=== PATIENT | male | born 1980 | race African-American/Black ===

== ENCOUNTER 2020-05-27 19:29 | Emergency (ER) | payer SELFPAY ==
[~2020-05-27] VITALS: Ht 193 cm; Wt 79.4 kg
[2020-05-27 20:00] VITALS: BP 143/101
== END 2020-05-27 21:52 | disposition home or self-care (01) ==
LOC: ER 19:37
DX: R06.02 Shortness of breath (principal); R91.8 Other nonspecific abnormal finding of lung field; Z20.828 Contact with and (suspected) exposure to other viral communicable diseases
CPT/HCPCS: 36415; 71045; 87426; 99284; C9803; U0003

== ENCOUNTER 2021-03-30 12:04 | Emergency (ER) | payer SELFPAY ==
[~2021-03-30] VITALS: Ht 193 cm; Wt 79.4 kg
[2021-03-30 13:26] LABS: Basophils # (auto) 0 10 ^3/uL (0-0.2); Basophils % (auto) 0.7 % (0.0-2.0); Eosinophils # (auto) 0 10 ^3/uL (0-0.8); Eosinophils % (auto) 0.7 % (0.0-7.0); Hematocrit 40.6 % (41.0-53.0); Hemoglobin 14.2 g/dL (13.5-17.5); Lymphocytes # (auto) 2.2 10 ^3/uL (0.4-5.4); Lymphocytes % (auto) 32.8 % (10.0-50.0); Mean Corpuscular Hemoglobin 30.3 pg (28.0-32.0); Mean Corpuscular Hgb Conc. 34.9 g/dL (32.0-36.0); Mean Corpuscular Volume 86.9 fL (80.0-100.0); Monocytes # (auto) 0.9 10 ^3/uL (0-1.3); Monocytes % (auto) 13.4 % (0.0-12.0); Neutrophils # (auto) 3.5 10 ^3/uL (1.6-8.6); Neutrophils % (auto) 52.4 % (37.0-80.0); Nucleated Red Blood Cells % 0.1 %; Red Blood Cells 4.67 10^6/uL (4.5-5.90); Red Cell Distribution Width 14.9 % (11.8-14.3); White Blood Cell 6.7 10^3/uL (4.4-10.8)
[2021-03-30 13:33] LABS: Albumin 4.6 g/dL (3.4-5.0); Calcium 9.5 mg/dL (8.5-10.1); Magnesium 2.5 mg/dL (1.6-2.6); Potassium 3.6 mmol/L (3.5-5.1)
[2021-03-30 13:36] LABS: BUN/Creatinine Ratio 12.8; Bilirubin, Total 0.8 mg/dL (0.2-1.0); Total Protein 11.3 g/dL (6.4-8.2)
[2021-03-30 16:52] VITALS: BP 142/114
== END 2021-03-30 17:31 | disposition left against medical advice (07) ==
LOC: ER 12:04
DX: R07.89 Other chest pain (principal); R00.0 Tachycardia, unspecified; Z53.21 Procedure and treatment not carried out due to patient leaving prior to being seen by health care provider
CPT/HCPCS: 36415; 71046; 80053; 83735; 84484; 85025; 93005